=== PATIENT | female | born 1990 | race Two or more races ===

== ENCOUNTER 2017-02-05 22:01 | Emergency (ER) | payer BC ==
[~2017-02-05] VITALS: Ht 170.2 cm; Wt 72.6 kg
[2017-02-05] MEDS ORDERED: NKM (22:13)
[2017-02-05] MEDS ORDERED: Famotidine 20 MG/ 2ML VIAL IVP ONE (22:45)
[2017-02-05] MEDS ORDERED: Dicyclomine HCl 10mg/5ml oral soln ORAL ONE (22:45)
[2017-02-05 23:02] LABS: APPEARANCE,URINE CLOUDY; BASOPHILS % (AUTO) 0.4 % (0.0-2.0); EOSINOPHILS % (AUTO) 1.6 % (0.0-3.0); KETONES,URINE NEGATIVE (NEGATIVE); LEUKOCYTE ESTERASE ,URINE 1+ (NEGATIVE); LYMPHOCYTES % (AUTO) 9.8 % (20.0-45.0); MEAN CORPUSCULAR HEMOGLOBIN 31.2 PG (27.0-31.0); MEAN CORPUSCULAR VOLUME 92 FL (80-99); MEAN PLATELET VOLUME 7.5 FL (6.5-10.1); NEUTROPHILS % (AUTO) 83.3 % (45.0-75.0); NITRITE,URINE NEGATIVE (NEGATIVE); PH,URINE 5 (4.5-8.0); PLATELET COUNT 215 K/UL (150-450); PROTEIN,URINE 1+ (NEGATIVE); RED BLOOD COUNT 4.37 M/UL (4.20-5.40); RED CELL DISTRIBUTION WIDTH 11.6 % (11.6-14.8); UROBILINOGEN,URINE NORMAL MG/DL (0.0-1.0); WHITE BLOOD COUNT 7.5 K/UL (4.8-10.8)
[2017-02-05 23:15] VITALS: BP 103/59
[2017-02-05 23:24] LABS: ALANINE AMINOTRANSFERASE 15 U/L (3-33); ALBUMIN/GLOBULIN RATIO 1.7 (1.0-2.7); ANION GAP 17 (5-15); ASPARTATE AMINO TRANSFERASE 18 U/L (5-40); CALCIUM 9.2 mg/dL (8.6-10.2); CARBON DIOXIDE 24 mEQ/L (20-30); CHLORIDE 96 mEQ/L (98-107); GLOMERULAR FILTRATION RATE > 60 mL/min (>60); HEMOLYSIS 3; LIPASE 38 U/L (< 60); POTASSIUM 3.4 mEQ/L (3.4-4.9); SODIUM 137 mEQ/L (135-145); TOTAL PROTEIN 6.8 g/dL (6.6-8.7)
[2017-02-05 23:25] LABS: BACTERIA,URINE FEW /HPF; RBC,URINE 0-2 /HPF (0 - 2); SQUAMOUS EPITHELIAL CELL,UR FEW /LPF (NONE/OCC); WBC,URINE 0 /HPF (0 - 2)
[2017-02-05 23:26] LABS: ICTOTEST NEG
[2017-02-05] MEDS ORDERED: Ketorolac 30mg Inj IV ONE (23:30)
--- NOTE | 2017-02-05 23:52 | Emergency Room Report ---
History of Present Illness General Chief Complaint: Nausea, Vomiting, and Diarrhea Source: Patient Present Illness HPI 27 YO F with 1 day of abd cramping, nausea/vomiting this morning, now multiple episodes of watery diarrhea. Currently c/o chills, body aches. No urinary complaints. No previous abd/pelvic surgeries. No other medical problems. Didnt take any OTC meds at home. Allergies: Coded Allergies: No Known Allergies (Unverified , 02/05/17) Patient History Past Medical History: none Past Surgical History: none Pertinent Family History: none Social History: Denies: alcohol use, drug use, smoking Last Menstrual Period: january Now: No Immunizations: UTD Reviewed Nursing Documentation: PMH: Agreed, PSxH: Agreed Nursing Documentation-PMH Past Medical History: No Stated History Review of Systems All Other Systems: negative except mentioned in HPI Physical Exam Vital Signs Date Time Temp Pulse Resp B/P Pulse Ox O2 Delivery O2 Flow Rate FiO2 02/05/17 22:05 98.1 91 16 117/80 97 Room Air Sp02 EP Interpretation: reviewed, normal General Appearance: normal inspection, well appearing, no apparent distress, alert, GCS 15, non-toxic Head: normocephalic, atraumatic Eyes: bilateral eye EOMI, bilateral eye PERRL ENT: normal ENT inspection, hearing grossly normal, normal voice Neck: normal inspection, full range of motion, supple, no bony tend Respiratory: normal inspection, lungs clear, normal breath sounds, no respiratory distress, no retraction, no wheezing Cardiovascular #1: regular rate, rhythm, no edema Gastrointestinal: normal inspection, normal bowel sounds, non tender, soft, no mass, no guarding, no hernia Genitourinary: no CVA tenderness Musculoskeletal: normal inspection, back normal, normal range of motion, Robby' s Sign negative Neurologic: normal inspection, alert, oriented x3, responsive, drum drier III-XII nml as tested, motor strength/tone normal, speech normal Psychiatric: normal inspection, judgement/insight normal, mood/affect normal Skin: normal inspection, normal color, no rash Lymphatic: normal inspection Medical Decision Making Diagnostic Impression: Primary Impression: Nausea, vomiting, and diarrhea ER Course Likely viral gastroenteritis. VSS. Afebrile. No focal abd ttp Labs: Normal H&H. No leuks. Mild dehydration, elevated serumCr. UA negative for infection Feels better s/p pepcid, bentyl, toradol Hydrated with IVF DC with Pepcid, bentyl Last Vital Signs Date Time Temp Pulse Resp B/P Pulse Ox O2 Delivery O2 Flow Rate FiO2 02/05/17 23:15 98.1 77 12 103/59 100 Room Air Status: improved Disposition: HOME, SELF-CARE Referrals: NON PHYSICIAN (PCP) WENDY GARCIA M.D. Feb 05, 2017 23:52
[2017-02-05] MEDS ORDERED: PEPCID20 MG ORAL (23:53)
[2017-02-05] MEDS ORDERED: BENTYL10 MG ORAL (23:53)
[2017-02-06 00:15] VITALS: BP 103/59
== END 2017-02-06 00:15 | disposition home or self-care (01) ==
LOC: EMR 22:25
DX: R11.2 Nausea with vomiting, unspecified (principal); R19.7 Diarrhea, unspecified; R10.9 Unspecified abdominal pain
CPT/HCPCS: 36415; 80053; 81003; 81025; 83690; 85025; 96360; 96374; 96375; 99284; J1885; J2405; S0028